=== PATIENT | male | born 1955 | race Caucasian/White ===

== ENCOUNTER 2022-08-27 07:33 | Inpatient (IN) ==
[2022-08-27] MEDS ORDERED: ASPIRIN CHEW 324 MG PO STA (07:48)
--- NOTE | 2022-08-27 07:49 | Emergency Department Note ---
Impression & Plan NSTEMI (non-ST elevated myocardial infarction), Chest pain, Elevated troponin I level ED Provider Note NAME: BLANCA MEJIA AGE: 67 SEX: M : 1955 ARRIVES VIA: Walk-In INFORMANT: Patient, ED PROVIDER(S): Ronny Montenegro DO CHIEF COMPLAINT: Chest pain HPI: The patient is a 67-year-old male who presented to the emergency department for an evaluation of chest pain. The patient describes anterior chest pain that radiates to his neck. He states he has no pain at this time. He is noticed worsening pain with exertion. He notices relief of the pain with rest but he also took an acids thinking this could be upset stomach. The patient denies having any dark or tarry stools. He denies having any nausea or vomiting. He states this morning he had return of the pain without exertion and was associated with diaphoresis. He states he has a history of an IN in the past but he was told it was because of anxiety. He states he is never had a cardiac catheterization but did have a stress test many years ago. He has a history of cholecystectomy as well as high triglycerides. The patient notices no fever or cough. The patient's not been seen by his family doctor for the symptoms. He presented to the emergency department with his significant other. ROS: See above HPI for pertinent positives & negatives. A total of 10 systems reviewed and were otherwise negative. PAST MEDICAL HISTORY: See Below PAST SURGICAL HISTORY: See Below FAMILY HISTORY: See Below SOCIAL HISTORY: See Below HOME MEDICATIONS: See Below ALLERGIES: See Below VITALS: See Below PHYSICAL EXAMINATION: GENERAL: Patient is awake alert in no acute distress patient is resting comfortably and showing no signs of anxiety EYES: The conjunctivae are clear. The pupils are round and reactive. EARS, NOSE, MOUTH AND THROAT: The nose is without any evidence of any deformity. NECK: The neck is nontender and supple. RESPIRATORY: Normal respiratory effort is noted there is no evidence of wheezing rhonchi or rales CARDIOVASCULAR: Regular rate and rhythm noted there no murmurs rubs or gallops normal S1 normal S2. GASTROINTESTINAL: The abdomen is soft. Abdomen is nontender. MUSCULOSKELETAL/EXTREMITIES: There is no evidence of gross deformity full range of motion is noted in the hips and shoulders. SKIN: There is no obvious evidence of any rash. There are no petechiae, pallor or cyanosis noted. NEUROLOGIC: Patient is awake alert and oriented x3 MEDICAL DECISION MAKING: The patient is a 67-year-old male who presented to the emergency department for an evaluation of chest pain. The patient was treated with aspirin initially in the emergency department. The patient's EKG did show biphasic T waves in the anterior leads. Initial troponin was elevated. He was started on heparin. He was reevaluated multiple times. I discussed the patient's laboratory and radiographic studies with him. I also discussed the limitations of the emergency department work-up for chest pain with him. Ultimately he was felt to be a good candidate for intervention after evaluation by cardiology. They did a bedside echo and feel that he does have some hypokinesis which could be consistent with ischemia. I [facility] Triage Nursing notes reviewed. Prior medical records reviewed Vital Signs: reviewed and remarkable for no significant abnormalities Differential diagnosis: Cardiac ischemia, aortic dissection, pulmonary embolism, pneumothorax, pneumonia, pericarditis, myocarditis, esophageal rupture, GERD, cholecystitis, pancreatitis, musculoskeletal, as well as other pathologies. ER treatment provided: See below Diagnostics interpreted by me: ECG: EKG was obtained in the emergency department. My interpretation is normal sinus rhythm at 86 bpm. There is no ectopy. Nonspecific ST segment depressions were noted with biphasic T waves in the anterior leads. No previous tracing was available. Cardiac Monitoring: An order was placed for continuous cardiac monitoring. The monitor shows a rate of 82 bpm with sinus rhythm. Laboratory studies: As stated above and show below. Imaging studies: See below. Radiographic imaging was reviewed by myself Consultation(s): I discussed this case with Dr. Newell who is on-call for the [facility] gas maker helper group. I discussed this case with Aurelia who is on for the [facility] hospitalist bg duncan. ED COURSE: Procedures: none Critical Care: I have personally spent greater than 45 minutes of critical care time in the direct management of this patient. This includes bedside care, interpretation of diagnostic studies, and testing, discussion with consultants, patient, and family members, and other required patient management activities. This 45 minutes is in excess of all separately billable procedures. 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 Hypercholesterolemia Surgical History History of cholecystectomy Family History Father Diabetes Clotting disorder Social History (Updated 08/27/22 @ 10:31 by Aurelia Watts PA-C) Smoking Status: Never smoker Hx Alcohol Use: No Hx Substance Use: Yes Non-Prescribed Medications: Marijuana Preferred Language: Armenian Communication Ability: Effective marital status: Current Living Situation: Spouse current occupational status: retired Feels Safe at Home: Yes Allergies Allergies Allergy/AdvReac Type Severity Reaction Status Date / Time No Known Allergies Allergy Unverified 08/27/22 09:12 Home Meds Home Medications Medication Instructions Recorded Confirmed aspirin 81 mg tablet 81 mg PO DAILY 08/27/22 08/27/22 atorvastatin 20 mg tablet 20 mg PO QAM 08/27/22 08/27/22 Results & Data (ED) Vital Signs Vital Signs - 24 hr 08/27/22 07:34 08/27/22 07:48 08/27/22 10:25 Temperature 36.1 C L Temperature Source Temporal Artery Scan Pulse Rate 85 78 Pulse Rate from SpO2 Sensor Respiratory Rate 20 Respiratory Effort / Characteristics Non-Labored Spontaneous Respiratory Depth Normal Blood Pressure 184/102 H 161/103 H Blood Pressure Mean 129 Pulse Oximetry 95 96 Oxygen Delivery Method Room Air Room Air Sepsis New/Unexplained Change in Mental Status No Sepsis Action Taken by Nursing No Action Required 08/27/22 07:49 08/27/22 07:49 08/27/22 08:00 Temperature Temperature Source Pulse Rate 93 H Pulse Rate from SpO2 Sensor 90 Respiratory Rate 18 Respiratory Effort / Characteristics Respiratory Depth Blood Pressure 160/105 H 138/80 Blood Pressure Mean 123 99 Pulse Oximetry 97 Oxygen Delivery Method Room Air Sepsis New/Unexplained Change in Mental Status Sepsis Action Taken by Nursing 08/27/22 08:00 08/27/22 08:30 08/27/22 08:30 Temperature Temperature Source Pulse Rate 90 90 Pulse Rate from SpO2 Sensor 79 76 Respiratory Rate 18 20 Respiratory Effort / Characteristics Respiratory Depth Blood Pressure 156/97 H Blood Pressure Mean 116 Pulse Oximetry 95 98 Oxygen Delivery Method Room Air Room Air Sepsis New/Unexplained Change in Mental Status Sepsis Action Taken by Nursing 08/27/22 09:00 08/27/22 09:00 08/27/22 09:30 Temperature Temperature Source Pulse Rate 85 85 Pulse Rate from SpO2 Sensor 65 69 Respiratory Rate 12 18 Respiratory Effort / Characteristics Respiratory Depth Blood Pressure 152/74 H Blood Pressure Mean 100 Pulse Oximetry 97 97 Oxygen Delivery Method Room Air Room Air Sepsis New/Unexplained Change in Mental Status Sepsis Action Taken by Nursing 08/27/22 09:31 08/27/22 09:31 08/27/22 10:00 Temperature Temperature Source Pulse Rate 91 H Pulse Rate from SpO2 Sensor 73 Respiratory Rate 24 Respiratory Effort / Characteristics Respiratory Depth Blood Pressure 153/77 H 175/103 H Blood Pressure Mean 102 127 Pulse Oximetry 96 Oxygen Delivery Method Room Air Sepsis New/Unexplained Change in Mental Status Sepsis Action Taken by Nursing 08/27/22 10:00 08/27/22 10:11 08/27/22 10:11 Temperature Temperature Source Pulse Rate 89 87 Pulse Rate from SpO2 Sensor 88 83 Respiratory Rate 19 20 Respiratory Effort / Characteristics Respiratory Depth Blood Pressure 161/103 H Blood Pressure Mean 122 Pulse Oximetry 97 97 Oxygen Delivery Method Room Air Room Air Sepsis New/Unexplained Change in Mental Status Sepsis Action Taken by Nursing 08/27/22 10:15 08/27/22 10:30 08/27/22 10:30 Temperature Temperature Source Pulse Rate 87 81 Pulse Rate from SpO2 Sensor 78 70 Respiratory Rate 17 19 Respiratory Effort / Characteristics Respiratory Depth Blood Pressure 162/93 H Blood Pressure Mean 116 Pulse Oximetry 97 97 Oxygen Delivery Method Room Air Room Air Sepsis New/Unexplained Change in Mental Status Sepsis Action Taken by Nursing 08/27/22 10:45 08/27/22 10:45 Temperature Temperature Source Pulse Rate 82 Pulse Rate from SpO2 Sensor 79 Respiratory Rate 17 Respiratory Effort / Characteristics Respiratory Depth Blood Pressure 137/80 Blood Pressure Mean 99 Pulse Oximetry 96 Oxygen Delivery Method Room Air Sepsis New/Unexplained Change in Mental Status Sepsis Action Taken by [facility] Medications Current Medication List: was personally reviewed by me Laboratory Data Attestation: I reviewed the patient's lab results. 08/27/22 07:48 08/27/22 07:48 Lab Results 08/27/22 08/27/22 08/27/22 Range/Units 07:48 07:48 07:48 WBC 11.70 H (4.8-10.8) K/ul RBC 5.45 (4.70-6.10) M/uL Hgb 16.5 (14.0-18.0) g/dl Hct 47.8 (42.0-52.0) % MCV 87.7 (80.0-100.0) fL MCH 30.3 (25.0-34.0) pg MCHC 34.5 (32.0-36.0) g/dL RDW Std Deviation 43.5 (36.4-46.3) fL RDW Coeff of Zachery 13.5 (11.5-14.5) % Plt Count 211 (130-400) K/uL MPV 9.6 (9.4-12.4) fL Immature Gran % (Auto) 0.3 % Neut % (Auto) 65.8 % Lymph % (Auto) 20.9 % [place] % (Auto) 7.9 % Eos % (Auto) 3.9 % Baso % (Auto) 1.2 % Neut # (Auto) 7.69 H (1.40-6.50) K/uL Lymph # (Auto) 2.44 (1.2-3.4) K/uL [place] # (Auto) 0.93 H (0.11-0.59) K/uL Eos # (Auto) 0.46 (0-0.50) K/uL Baso # (Auto) 0.14 (0-0.2) K/uL Immature Gran # (Auto) 0.04 (0.01-0.20) K/uL PT 10.7 (9.0-12.0) Seconds INR 1.0 (0.9-1.1) APTT 25.9 (21.0-31.0) Seconds PTT Ratio 0.9 Sodium 138 (136-145) mmol/L Potassium 3.9 (3.5-5.1) mmol/L Chloride 105 (98-107) mmol/L Carbon Dioxide 27 (21-32) mmol/L Anion Gap 6 (3-11) BUN 19 (6-23) mg/dl Creatinine 1.05 (0.6-1.4) mg/dl Est Cr Clr Drug Dosing 72.9 ml/min Est GFR ( Amer) 83.5 ml/min Est GFR (Non-Af Amer) 72.1 ml/min BUN/Creatinine Ratio 18.1 (10-20) Glucose 157 H (70-99(Fasting)) mg/dl Calcium 10.5 H (8.6-10.3) mg/dl Total Bilirubin 1.1 H (0.2-1.0) mg/dl AST 35 (13-39) U/L ALT 35 (7-52) U/L Alkaline Phosphatase 80 (34-104) U/L Troponin I High Sens 193.5 H* (0-20) pg/ml Total Protein 7.5 (6.0-8.3) gm/dl Albumin 4.5 (3.4-5.0) gm/dl Globulin 3.0 (2.5-4.0) gm/dl Albumin/Globulin Ratio 1.5 (0.9-2) Lipase 34 (11-82) U/L SARS-CoV-2, RNA, NAAT (NEGATIVE) 08/27/22 Range/Units 08:30 WBC (4.8-10.8) K/ul RBC (4.70-6.10) M/uL Hgb (14.0-18.0) g/dl Hct (42.0-52.0) % MCV (80.0-100.0) fL MCH (25.0-34.0) pg MCHC (32.0-36.0) g/dL RDW Std Deviation (36.4-46.3) fL RDW Coeff of Zachery (11.5-14.5) % Plt Count (130-400) K/uL MPV (9.4-12.4) fL Immature Gran % (Auto) % Neut % (Auto) % Lymph % (Auto) % [place] % (Auto) % Eos % (Auto) % Baso % (Auto) % Neut # (Auto) (1.40-6.50) K/uL Lymph # (Auto) (1.2-3.4) K/uL [place] # (Auto) (0.11-0.59) K/uL Eos # (Auto) (0-0.50) K/uL Baso # (Auto) (0-0.2) K/uL Immature Gran # (Auto) (0.01-0.20) K/uL PT (9.0-12.0) Seconds INR (0.9-1.1) APTT (21.0-31.0) Seconds PTT Ratio Sodium (136-145) mmol/L Potassium (3.5-5.1) mmol/L Chloride (98-107) mmol/L Carbon Dioxide (21-32) mmol/L Anion Gap (3-11) BUN (6-23) mg/dl Creatinine (0.6-1.4) mg/dl Est Cr Clr Drug Dosing ml/min Est GFR ( Amer) ml/min Est GFR (Non-Af Amer) ml/min BUN/Creatinine Ratio (10-20) Glucose (70-99(Fasting)) mg/dl Calcium (8.6-10.3) mg/dl Total Bilirubin (0.2-1.0) mg/dl AST (13-39) U/L ALT (7-52) U/L Alkaline Phosphatase (34-104) U/L Troponin I High Sens (0-20) pg/ml Total Protein (6.0-8.3) gm/dl Albumin (3.4-5.0) gm/dl Globulin (2.5-4.0) gm/dl Albumin/Globulin Ratio (0.9-2) Lipase (11-82) U/L SARS-CoV-2, RNA, NAAT NEGATIVE (NEGATIVE) Administered Medications Heparin Sodium/Dextrose (Heparin Sodium/Dextrose) 25,000 units in 500 mls @ 28 mls/hr IV .[id number] [facility]; Protocol Stop: 09/26/22 09:14 Last Admin: 08/27/22 09:16 Dose: 1,400 units/hr, 28 mls/hr Documented By: GEREMIAS Co-signed By: KV Discontinued Medications Aspirin (Aspirin Chew 324 Mg) 324 mg PO NOW STA Stop: 08/27/22 07:49 Last Admin: 08/27/22 07:51 Dose: 324 mg Documented By: GEREMIAS Heparin Sodium/Dextrose (Heparin Iv Adult Wt-Based Standard *No* Bolus Protocol) 1 each IV ONE ONE; Protocol Stop: 08/27/22 08:49 Last Admin: 08/27/22 09:27 Dose: Not Given Documented By: GEREMIAS Metoprolol Tartrate (Metoprolol Tartrate 1 Mg/Ml Vial) 5 mg IV NOW STA Stop: 08/27/22 10:12 Last Admin: 05/22/23 10:25 Dose: 5 mg Documented By: GEREMIAS Metoprolol Tartrate (Metoprolol Tartrate 1 Mg/Ml Vial) Confirm Administered Dose 5 mg IV .STK-MED ONE Stop: 08/27/22 10:23 Last Admin: 08/27/22 10:23 Dose: Not Given Documented By: GEREMIAS Imaging Data Attestation: I personally reviewed and interpreted this imaging study as follows: My Impression: 1 view chest x-ray was obtained in the emergency department. My interpretation is no free air, no definite infiltrate, final report below Radiologist's Impression: Chest X-Ray 08/27/22 07:48 XR chest 1V portable CLINICAL HISTORY: Chest pain, nonspecific TECHNIQUE: Single frontal radiograph of the chest was obtained. Comparison: None available at the time of this dictation. FINDINGS: No lines and tubes are seen. The cardiomediastinal silhouette is normal. The lungs are clear. No evidence of pleural effusion or pneumothorax. IMPRESSION: No acute chest disease. ACT 112: Negative or not required by law. Electronically signed by: Sha Orantes M.D. 08/27/2022 8:09 AM Discharge Plan Visit Data Chief Complaint: Chest Pain Stated Complaint: CHEST PAIN ED Provider: Ronny Montenegro Discharge Problem: NSTEMI (non-ST elevated myocardial infarction), Chest pain, Elevated troponin I level Patient Disposition: Being Evaluated by Hospitalist Discharge Instructions Interventions: ED Discharge Assessment Last Done: 08/27/22 11:07 Forms Stand Alone Forms: My [facility] [employer] Prescriptions Prescriptions: No Action atorvastatin 20 mg tablet 20 mg PO QAM aspirin 81 mg Tablet 81 mg PO DAILY Referrals Referrals: Sid Lau [Non-Staff] -
--- NOTE | 2022-08-27 08:10 | XRay Report ---
XR chest 1V portable CLINICAL HISTORY: Chest pain, nonspecific TECHNIQUE: Single frontal radiograph of the chest was obtained. Comparison: None available at the time of this dictation. FINDINGS: No lines and tubes are seen. The cardiomediastinal silhouette is normal. The lungs are clear. No evid ence of pleural effusion or pneumothorax. IMPRESSION: No acute chest disease. ACT 112: Negative or not required by law. Electronically signed by: Sha Orantes M.D. 08/27/2022 8:09 AM
[2022-08-27 08:11] LABS: Basophils # (auto) 0.14 K/uL (0-0.2); Basophils % (auto) 1.2 %; Eosinophils # (auto) 0.46 K/uL (0-0.50); Eosinophils % (auto) 3.9 %; Hematocrit (blood only) 47.8 % (42.0-52.0); Hemoglobin 16.5 g/dl (14.0-18.0); Immature Granulocytes # (auto) 0.04 K/uL (0.01-0.20); Immature Granulocytes % (auto) 0.3 %; Lymphocytes # (auto) 2.44 K/uL (1.2-3.4); Lymphocytes % (auto) 20.9 %; Mean Corpuscular Hemoglobin 30.3 pg (25.0-34.0); Mean Corpuscular Hgb Conc 34.5 g/dL (32.0-36.0); Mean Corpuscular Volume 87.7 fL (80.0-100.0); Mean Platelet Volume 9.6 fL (9.4-12.4); Monocytes # (auto) 0.93 K/uL (0.11-0.59); Monocytes % (auto) 7.9 %; Neutrophils # (auto) 7.69 K/uL (1.40-6.50); Neutrophils % (auto) 65.8 %; Platelet Count 211 K/uL (130-400); RDW Coefficient of Variation 13.5 % (11.5-14.5); RDW Standard Deviation 43.5 fL (36.4-46.3); Red Blood Count 5.45 M/uL (4.70-6.10)
[2022-08-27 08:22] LABS: Partial Thromboplastin Ratio 0.9; Partial Thromboplastin Time 25.9 Seconds (21.0-31.0); Prothrombin Time 10.7 Seconds (9.0-12.0)
[2022-08-27 08:37] LABS: Albumin Globulin Ratio 1.5 (0.9-2); Albumin Level 4.5 gm/dl (3.4-5.0); BUN Creatinine Ratio 18.1 (10-20); Bilirubin,Total 1.1 mg/dl (0.2-1.0); Calcium 10.5 mg/dl (8.6-10.3); Creatinine Clr Calc Pharmacy 72.9 ml/min; Est GFR (African American) 83.5 ml/min; Est GFR (Non-African American) 72.1 ml/min; Potassium 3.9 mmol/L (3.5-5.1); Total Protein 7.5 gm/dl (6.0-8.3)
[2022-08-27] MEDS ORDERED: Heparin IV Adult Wt-Based Standard *NO* Bolus Protocol IV ONE (08:48)
[2022-08-27 08:55] LABS: Troponin I High Sensitivity 193.5 pg/ml (0-20)
[2022-08-27] MEDS ORDERED: HEPARIN SODIUM/DEXTROSE 25,000 UNITS/500 ML BAG IV SCH (09:15)
[2022-08-27] MEDS ORDERED: METOPROLOL TARTRATE 1 MG/ML VIAL IV STA (10:11)
[2022-08-27] MEDS ORDERED: METOPROLOL TARTRATE 1 MG/ML VIAL IV ONE (10:22)
--- NOTE | 2022-08-27 10:31 | History & Physical Report ---
Date of Service August 27, 2022 Assessment & Plan (1) NSTEMI (non-ST elevated myocardial infarction): (2) Hypercholesterolemia: Plan This is a 67-year-old male who has significant past medical history of hyperlipidemia, history of necrotizing pancreatitis 7 years ago and marijuana u se who presents to ED secondary to chest pain x2 to 3 days. Discussed with cardiology, Dr. Ramirez, at bedside. Pt with previous chest pain in setting of elevated trop and concern for LAD territorial infarct on initial echo reading. Plan to go for cardiac cath today, timing TBD. NSTEMI HLD admit to PCU keep NPO plan for cardiac cath pt received 324mg of ASA in ED Heparin initiated will continue home dose asa and atorvastatin, may need to increase atorvastatin based on lipid panel in a.m. lipid panel, a1c in a.m. start metoprolol tartrate 25mg bid cardiology on board formal echo report pending will await further recs pending cath PCP: Franchesca FULL CODE Dispo: PCU Pt was seen and examined in collaboration with Dr. Hall, please see addendum History of Present Illness Chief Complaint: Chest pain x2 to 3 days. Primary Care Provider: Cassandra Sorensen, This is a 67-year-old male who has significant past medical history of hyperlipidemia, history of necrotizing pancreatitis 7 years ago and marijuana use who presents to ED secondary to chest pain x2 to 3 days. Patient's is at bedside. Patient notes substernal nonradiating chest pain that occurred while at rest over the last 2 to 3 days. When it came on he will try to, "walk it off," and symptoms will get worse. This morning he woke up and shortly after arising the chest pain started again and therefore presented to ED. He described the pain as a pressure. He has never experienced this pain before. He has been trying Tums over the weekend without significant relief. He denies any significant family history of cardiac disease. He denies any recent illness, fever, chills, sweats, lightheadedness, dizziness, diaphoresis, shortness of breath, EDGAR, orthopnea, nausea, vomiting, abdominal pain or change in bowel or urinary habits. He does not smoke or use any alcohol. He does smoke marijuana at bedtime to help him sleep. 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 Hypercholesterolemia Surgical History History of cholecystectomy Family History Father Diabetes Clotting disorder Social History (Updated 08/27/22 @ 10:31 by Aurelia Watts PA-C) Smoking Status: Former smoker Hx Alcohol Use: No Hx Substance Use: Yes Non-Prescribed Medications: Marijuana Last Used Substance Other:: uses at for sleep Preferred Language: Citizen Of [place] Communication Ability: Effective Ear Muff Assembler Required: No Beliefs That Will Affect Care: None marital status: Current Living Situation: Spouse current occupational status: retired Other Information That Helps Us Care for You: No Feels Safe at Home: Yes Assistive Devices: Glasses Review of Systems Review of Systems: All systems reviewed & are unremarkable except as noted in HPI & below Physical Exam Physical Exam: Constitutional: WD/WN, vitals as above, NAD, sitting up in bed, pleasant, conversing easily Head: Normocephalic, Atraumatic Eyes: PERRL, conjunctivae normal, anicteric sclerae ENMT: external ear and nose normal, oropharynx normal Neck: trachea midline, no thyromegaly normal visual inspection Respiratory: normal respiratory effort, lungs clear to auscultation, no wheeze, rales, rhonchi. Normal insp/exp effort, no accessory muscle use Cardiovascular: RRR, no murmur, no edema Vessels: no JVD or carotid bruit Chest: normal inspection of chest Abdomen: normal bowel sounds, soft, nontender, no hepatosplenomegaly Musculoskeletal: no cyanosis or clubbing, extremities motor strength 5/5 Skin: no rashes, warm and dry normal turgor Neurologic: PERRL, EOMI, accommodation nl, no face palsy, no dysarthria CN's II-XI intact bilaterally and moves all extremities Psychiatric: A+Ox3, euthymic affect Lymphatic: no cervical or axillary lymphadenopathy : deferred Results & Data Results & Data Vital Signs (Past 12 Hours) Vital Signs Temp Pulse Resp BP Pulse Ox O2 Del Method 08/27/22 10:11 87 20 97 Room Air 08/27/22 10:11 161/103 H 08/27/22 10:00 89 19 97 Room Air 08/27/22 10:00 175/103 H 08/27/22 09:31 91 H 24 96 Room Air 08/27/22 09:31 153/77 H 08/27/22 09:30 85 18 97 Room Air 08/27/22 09:00 85 12 97 Room Air 08/27/22 09:00 152/74 H 08/27/22 08:30 90 20 98 Room Air 08/27/22 08:30 156/97 H 08/27/22 08:00 90 18 95 Room Air 08/27/22 08:00 138/80 08/27/22 07:49 93 H 18 97 Room Air 08/27/22 07:49 160/105 H 08/27/22 10:25 78 161/103 H 08/27/22 07:48 96 Room Air 08/27/22 07:34 36.1 C L 85 20 184/102 H 95 Room Air Diagnostic Findings Chest X-Ray 08/27/22 07:48 XR chest 1V portable CLINICAL HISTORY: Chest pain, nonspecific TECHNIQUE: Single frontal radiograph of the chest was obtained. Comparison: None available at the time of this dictation. FINDINGS: No lines and tubes are seen. The cardiomediastinal silhouette is normal. The lungs are clear. No evidence of pleural effusion or pneumothorax. IMPRESSION: No acute chest disease. ACT 112: Negative or not required by law. Electronically signed by: Sha Orantes M.D. 08/27/2022 8:09 AM Medications Administered Medication List Heparin Sodium/Dextrose (Heparin Sodium/Dextrose) 25,000 units in 500 mls @ 28 mls/hr IV .[id number] [facility]; Protocol Stop: 09/26/22 09:14 Last Admin: 08/27/22 09:16 Dose: 1,400 units/hr, 28 mls/hr Documented By: GEREMIAS Co-signed By: KV Discontinued Medications Aspirin (Aspirin Chew 324 Mg) 324 mg PO NOW STA Stop: 08/27/22 07:49 Last Admin: 08/27/22 07:51 Dose: 324 mg Documented By: GEREMIAS Heparin Sodium/Dextrose (Heparin Iv Adult Wt-Based Standard *No* Bolus Protocol) 1 each IV ONE ONE; Protocol Stop: 08/27/22 08:49 Last Admin: 08/27/22 09:27 Dose: Not Given Documented By: GEREMIAS Metoprolol Tartrate (Metoprolol Tartrate 1 Mg/Ml Vial) 5 mg IV NOW STA Stop: 08/27/22 10:12 Last Admin: 08/27/22 10:25 Dose: 5 mg Documented By: GEREMIAS Metoprolol Tartrate (Metoprolol Tartrate 1 Mg/Ml Vial) Confirm Administered Dose 5 mg IV .STK-MED ONE Stop: 08/27/22 10:23 Last Admin: 08/27/22 10:23 Dose: Not Given Documented By: GEREMIAS ECG Rate (beats per minute): 82 Rhythm: normal sinus Findings: + PVC COVID-19 Results Results COVID-19 Adm Lab Results: RBC 5.45 M/uL (4.70-6.10) 08/27/22 WBC 11.70 K/ul (4.8-10.8) H 08/27/22 Hgb 16.5 g/dl (14.0-18.0) 08/27/22 Hct 47.8 % (42.0-52.0) 08/27/22 Plt Count 211 K/uL (130-400) 08/27/22 Neutrophils (%) (Auto) 65.8 % 08/27/22 Lymphocytes (%) (Auto) 20.9 % 08/27/22 Monocytes # (Auto) 0.93 K/uL (0.11-0.59) H 08/27/22 Eosinophils # (Auto) 0.46 K/uL (0-0.50) 08/27/22 Immature Granulocyte % (Auto) 0.3 % 08/27/22 Neutrophils # (Auto) 7.69 K/uL (1.40-6.50) H 08/27/22 Lymphocytes # (Auto) 2.44 K/uL (1.2-3.4) 08/27/22 Monocytes # (Auto) 0.93 K/uL (0.11-0.59) H 08/27/22 Eosinophils # (Auto) 0.46 K/uL (0-0.50) 08/27/22 Basophils # (Auto) 0.14 K/uL (0-0.2) 08/27/22 Immature Granulocyte # (Auto) 0.04 K/uL (0.01-0.20) 3 Na 138 mmol/L (136-145) 08/27/22 K 3.9 mmol/L (3.5-5.1) 08/27/22 Cl 105 mmol/L (98-107) 08/27/22 CO2 27 mmol/L (21-32) 08/27/22 Anion Gap 6 (3-11) 08/27/22 BUN 19 mg/dl (6-23) 08/27/22 Creatinine 1.05 mg/dl (0.6-1.4) 08/27/22 BUN/Creatinine Ratio 18.1 (10-20) 08/27/22 Glucose Level 157 mg/dl (70-99(Fasting)) H 08/27/22 Ca 10.5 mg/dl (8.6-10.3) H 08/27/22 Total Bilirubin 1.1 mg/dl (0.2-1.0) H 08/27/22 AST/SGOT 35 U/L (13-39) 08/27/22 ALT/SGPT 35 U/L (7-52) 08/27/22 Alkaline Phosphatase 80 U/L (34-104) 08/27/22 Total Protein 7.5 gm/dl (6.0-8.3) 08/27/22 Albumin 4.5 gm/dl (3.4-5.0) 08/27/22 Globulin 3.0 gm/dl (2.5-4.0) 08/27/22 Albumin/Globulin Ratio 1.5 (0.9-2) 08/27/22 PTT 36.3 Seconds (21.0-31.0) H 08/27/22 INR 1.0 (0.9-1.1) 08/27/22 SARS-CoV-2, RNA, NAAT NEGATIVE (NEGATIVE) 08/27/22 Chest X-Ray 08/27/22 Code Status & VTE Plan Code Status full code VTE Prophylaxis Plan VTE Prophylaxis will be ordered: No Reason for no VTE drug order: Treatment not indicated Supervising Physician Co-Signing Physician Notes Patient was seen and examined independently. Chart reviewed. Case discussed wi th MICHELLE. Here with unstable angina, started on heparin drip and plan for cardiac cath.
--- NOTE | 2022-08-27 10:33 | Cardiology Consultation ---
Date of Consultation August 27, 2022 Assessment & Plan (1) NSTEMI (non-ST elevated myocardial infarction): Plan 67-year-old male presents with 4 days of waxing and waning chest discomfort, elevation in high-sensitivity troponin of 193.5, subtle anteroseptal, anterior wall motion abnormality noted on bedside echocardiogram, without significant repolarization changes noted on EKG x2. Chest discomfort resolved at present at the time my assessment. Medication therapy: Patient has received aspirin 324 mg daily and aspirin 81 mg daily will be continued. Patient remains a little bit hypertensive at the time my assessment with heart rate in the 70s, and systolic blood pressure in the 160s. We will therefore proceed with a dose of metoprolol tartrate 5 mg IV x1. Continue prior to hospital treatment with atorvastatin, increased dose to 40 mg pending results of lipid panel. Start metoprolol tartrate 25 mg twice daily. Patient be kept n.p.o. except medications. Will discuss case with interventional cardiology with anticipated cardiac catheterization today. Patient agreeable to plan. Case discussed with Dr Montenegro of emergency medicine and Aurelia Watts PA-C for the purpose of coordination of care. History of Present Illness History of Present Illness Silvio Arango is a 67-year-old male seen in cardiology consultation per the request of Dr. Montenegro for the evaluation of a non-ST segment elevation acute coronary syndrome. Patient seen and examined in room B3 of the emergency department. He is accompanied by his spouse, Grace who is at the bedside at the time of my assessment. Patient states that 3 days ago on 08/24/2022 he had experienced a chest pressure sensation at rest. This went away on its own however he went for a short walk and he noted that the symptoms returned. The symptoms waxed and waned over the weekend on Saturday and Saturday and this morning shortly after waking up he noted severe midline chest pressure. He presented to the emergency department by private automobile. Initial EKG performed this morning 7:44 AM revealed sinus rhythm at 86 bpm with incomplete right bundle branch block and no significant repolarization changes. His initial high-sensitivity troponin I was elevated at 193.5 PG per mL. Patient states that his discomfort resolved in the emergency room shortly after receiving four 81 mg aspirin tablets and initiation of unfractioned heparin. Repeat EKG performed at the time of my assessment at the bedside at 10:02 AM reveals ongoing sinus rhythm at 82 bpm with occasional PVCs and nonspecific ST-T wave abnormality without significant ST elevation or depression. A bedside echocardiogram has been performed revealing a subtle anteroseptal and anterior wall motion abnormality with normal LVEF in the range of 55 to 60% and without significant valvular heart disease. The patient does not have a past cardiac history. History only notable for past cholecystectomy. Outpatient medications include aspirin 81 mg daily and atorvas tatin 20 mg daily. 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 Family History: Denies family history of coronary heart disease Allergies: No known drug allergies Last Meal: Evening of 08/26/2022 Allergies Allergy/AdvReac Type Severity Reaction Status Date / Time No Known Allergies Allergy Unverified 08/27/22 11:18 Home Medications Medication Instructions Recorded Confirmed Type aspirin 81 mg tablet 81 mg PO DAILY 08/27/22 08/27/22 History atorvastatin 20 mg tablet 20 mg PO QAM 08/27/22 08/27/22 History Patient History Medical History (Updated 08/27/22 @ 10:37 by Aurelia Watts PA-C) Hx of pancreatitis 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 Hypercholesterolemia Surgical History History of cholecystectomy Family History Father Diabetes Clotting disorder Social History (Updated 08/27/22 @ 10:31 by Aurelia Watts PA-C) Smoking Status: Former smoker Hx Alcohol Use: No Hx Substance Use: Yes Non-Prescribed Medications: Marijuana Last Used Substance Other:: uses at Hs for sleep Preferred Language: Peruvian Communication Ability: Effective Fitter Mechanic Required: No Beliefs That Will Affect Care: None marital status: Current Living Situation: Spouse current occupational status: retired Other Information That Helps Us Care for You: No Feels Safe at Home: Yes Assistive Devices: Glasses Review of Systems Review of Systems: All systems reviewed & are unremarkable except as noted in HPI & below Physical Exam Physical Exam: Temp Pulse Resp BP Pulse Ox O2 Del Method 36.1 C L 78 20 161/103 H 97 Room Air 08/27/22 07:34 08/27/22 10:25 08/27/22 10:11 08/27/22 10:25 08/27/22 10:11 08/27/22 10:11 Constitutional: WD/WN, vitals as above Eyes: PERRL, conjunctivae normal, anicteric sclerae Respiratory: normal respiratory effort, lungs clear to auscultation Cardiovascular: RRR, no murmur, no edema Gastrointestinal (Abdomen): normal bowel sounds, soft, nontender, no hepatosplenomegaly Neurologic: PERRL, EOMI, accommodation nl, no face palsy, no dysarthria Psychiatric: A+Ox3, euthymic affect Results & Data Vital Signs (Past 12 Hours) Vital Signs Temp Pulse Resp BP Pulse Ox O2 Del Method 08/27/22 09:31 91 H 24 96 Room Air 08/27/22 09:31 153/77 H 08/27/22 09:30 85 18 97 Room Air 08/27/22 09:00 85 12 97 Room Air 08/27/22 09:00 152/74 H 08/27/22 08:30 90 20 98 Room Air 08/27/22 08:30 156/97 H 08/27/22 08:00 90 18 95 Room Air 08/27/22 08:00 138/80 08/27/22 07:49 93 H 18 97 Room Air 08/27/22 07:49 160/105 H 08/27/22 07:48 96 Room Air 08/27/22 07:34 36.1 C L 85 20 184/102 H 95 Room Air Laboratory Results Cardiac Enzymes 08/27/22 Range/Units 07:48 AST 35 (13-39) U/L Troponin I High Sens 193.5 H* (0-20) pg/ml Coagulation 08/27/22 Range/Units 07:48 PT 10.7 (9.0-12.0) Seconds APTT 25.9 (21.0-31.0) Seconds CBC 08/27/22 Range/Units 07:48 WBC 11.70 H (4.8-10.8) K/ul RBC 5.45 (4.70-6.10) M/uL Hgb 16.5 (14.0-18.0) g/dl Hct 47.8 (42.0-52.0) % Plt Count 211 (130-400) K/uL Neut # (Auto) 7.69 H (1.40-6.50) K/uL Lymph # (Auto) 2.44 (1.2-3.4) K/uL [place] # (Auto) 0.93 H (0.11-0.59) K/uL Eos # (Auto) 0.46 (0-0.50) K/uL Baso # (Auto) 0.14 (0-0.2) K/uL Comprehensive Metabolic Panel 08/27/22 Range/Units 07:48 Sodium 138 (136-145) mmol/L Potassium 3.9 (3.5-5.1) mmol/L Chloride 105 (98-107) mmol/L Carbon Dioxide 27 (21-32) mmol/L BUN 19 (6-23) mg/dl Creatinine 1.05 (0.6-1.4) mg/dl Glucose 157 H (70-99(Fasting)) mg/dl Calcium 10.5 H (8.6-10.3) mg/dl AST 35 (13-39) U/L ALT 35 (7-52) U/L Alkaline Phosphatase 80 (34-104) U/L Total Protein 7.5 (6.0-8.3) gm/dl Albumin 4.5 (3.4-5.0) gm/dl Intake and Output 08/26/22 08/27/22 08/27/22 22:59 06:59 14:59 Other: Weight 88 kg Weight Measurement Method Chair Scale Patient Weight 08/28/22 06:59 Weight 88 kg Diagnostic Findings EKG findings as noted above. Echo findings as noted.
--- NOTE | 2022-08-27 11:29 | Pre Anesthesia Assessment ---
Date of Service August 27, 2022 Pre Sedation Assessment Vital Signs Temp Pulse Pulse Resp BP BP Pulse Ox 08/27/22 11:10 83 18 162/109 H 98 08/27/22 10:45 82 17 96 08/27/22 10:45 137/80 08/27/22 10:30 81 19 97 08/27/22 10:30 162/93 H 08/27/22 10:15 87 17 97 08/27/22 10:11 87 20 97 08/27/22 10:11 161/103 H 08/27/22 10:00 89 19 97 08/27/22 10:00 175/103 H 08/27/22 09:31 91 H 24 96 08/27/22 09:31 153/77 H 08/27/22 09:30 85 18 97 08/27/22 09:00 85 12 97 08/27/22 09:00 152/74 H 08/27/22 08:30 90 20 98 08/27/22 08:30 156/97 H 08/27/22 08:00 90 18 95 08/27/22 08:00 138/80 08/27/22 07:49 93 H 18 97 08/27/22 07:49 160/105 H 08/27/22 10:25 78 161/103 H 08/27/22 07:48 96 08/27/22 07:34 97.0 F L 85 20 184/102 H 95 O2 Del Method 08/27/22 11:10 Room Air 08/27/22 10:45 Room Air 08/27/22 10:45 08/27/22 10:30 Room Air 08/27/22 10:30 08/27/22 10:15 Room Air 08/27/22 10:11 Room Air 08/27/22 10:11 08/27/22 10:00 Room Air 08/27/22 10:00 08/27/22 09:31 Room Air 08/27/22 09:31 08/27/22 09:30 Room Air 08/27/22 09:00 Room Air 08/27/22 09:00 08/27/22 08:30 Room Air 08/27/22 08:30 08/27/22 08:00 Room Air 08/27/22 08:00 08/27/22 07:49 Room Air 08/27/22 07:49 08/27/22 10:25 08/27/22 07:48 Room Air 08/27/22 07:34 Room Air Cardiovascular RRR, no murmur, no edema Respiratory normal respiratory effort, lungs clear to auscultation Pre-Sedation Airway Assessment Smoking Status: Never smoker Hx Sleep Apnea: No Hx Difficult Intubation: No Short, Thick Neck: No Thyromental Distance: > or= 3.5 Finger Breadths Oral Cavity: + WNL Mallampati Class: II ASA: ASA3 NPO Status Date of Last Intake of Fluids: 08/26/22 Time of Last Intake of Fluids: 23:00 Date of Last Intake of Solid Food: 08/26/22 Time of Last Intake of Solid Foods: 23:00 Procedure Planning Contraindications for Sedation: none Current Medications Reviewed: Yes Notes The planned sedation has been discussed with the patient. Informed Consent was obtained. I have identified the patient, determined the appropriateness of sedation and have assessed the patient immediately prior to the procedure. All medicine(s) and interventions are by my order.
[2022-08-27] MEDS ORDERED: MIDAZOLAM HCL 1 MG/ML 2ML VIAL ONE ×2 (11:58→12:55)
--- NOTE | 2022-08-27 12:03 | Electrocardiogram Report ---
Test Reason : Blood Pressure : / mmHG Vent. Rate : 086 BPM Atrial Rate : 086 BPM P-R Int : 168 ms QRS Dur : 092 ms QT Int : 354 ms P-R-T Axes : 022 -34 080 degrees QTc Int : 423 ms Normal sinus rhythm Left axis deviation Nonspecific T wave abnormality Abnormal ECG No previous ECGs available Confirmed by Ronny Flanagan ([id number]) on 08/27/2022 12:03:36 PM Referred By: REFERRED SELF Confirmed By:Ronny Flanagan
--- NOTE | 2022-08-27 12:06 | Electrocardiogram Report ---
Test Reason : Blood Pressure : / mmHG Vent. Rate : 082 BPM Atrial Rate : 082 BPM P-R Int : 164 ms QRS Dur : 092 ms QT Int : 356 ms P-R-T Axes : 000 -28 100 degrees QTc Int : 415 ms Sinus rhythm with occasional Premature ventricular complexes RSR' or QR pattern in V1 suggests right ventricular conduction delay Nonspecific ST and T wave abnormality Abnormal ECG When compared with ECG of 27-AUG-2022 07:44, (unconfirmed) Premature ventricular complexes are now Present Nonspecific T wave abnormality no longer evident in Anterior leads Confirmed by Ronny Flanagan ([id number]) on 08/27/2022 12:05:41 PM Referred By: REFERRED SELF Confirmed By:Ronny Flanagan
[2022-08-27] MEDS ORDERED: fentaNYL citrate PF 100 MCG/2 ML VIAL ONE ×2 (12:51→12:55)
[2022-08-27] MEDS ORDERED: TICAGRELOR 90 MG TAB ONE (12:52)
[2022-08-27] MEDS ORDERED: niCARdipine HCL INJ 2.5 MG/ML 10 ML AMP ONE (12:55)
[2022-08-27] MEDS ORDERED: NITROGLYCERIN/D5W 100MCG/ML 20ML SYR ONE (12:55)
[2022-08-27] MEDS: HEPARIN (PORCINE) 1000 UNIT/ML 10 ML (CATH LAB USE ONLY) ONE ×2 (12:56→13:55)
[2022-08-27] MEDS ORDERED: NITROGLYCERIN SL 0.4 MG/TAB TAB SL PRN (13:16)
--- NOTE | 2022-08-27 13:16 | Post Anesthesia Assessment ---
Date of Service August 27, 2022 Post Sedation Assessment Vital Signs Temp Pulse Pulse Resp BP BP BP 08/27/22 13:00 75 16 123/79 08/27/22 11:10 83 18 162/109 H 08/27/22 10:45 82 17 08/27/22 10:45 137/80 08/27/22 10:30 81 19 08/27/22 10:30 162/93 H 08/27/22 10:15 87 17 08/27/22 10:11 87 20 08/27/22 10:11 161/103 H 08/27/22 10:00 89 19 08/27/22 10:00 175/103 H 08/27/22 09:31 91 H 24 08/27/22 09:31 153/77 H 08/27/22 09:30 85 18 08/27/22 09:00 85 12 08/27/22 09:00 152/74 H 08/27/22 08:30 90 20 08/27/22 08:30 156/97 H 08/27/22 08:00 90 18 08/27/22 08:00 138/80 08/27/22 07:49 93 H 18 08/27/22 07:49 160/105 H 08/27/22 10:25 78 161/103 H 08/27/22 07:48 08/27/22 07:34 97.0 F L 85 20 184/102 H Pulse Ox O2 Del Method 08/27/22 13:00 93 Room Air 08/27/22 11:10 98 Room Air 08/27/22 10:45 96 Room Air 08/27/22 10:45 08/27/22 10:30 97 Room Air 08/27/22 10:30 08/27/22 10:15 97 Room Air 08/27/22 10:11 97 Room Air 08/27/22 10:11 08/27/22 10:00 97 Room Air 08/27/22 10:00 08/27/22 09:31 96 Room Air 08/27/22 09:31 08/27/22 09:30 97 Room Air 08/27/22 09:00 97 Room Air 08/27/22 09:00 08/27/22 08:30 98 Room Air 08/27/22 08:30 08/27/22 08:00 95 Room Air 08/27/22 08:00 08/27/22 07:49 97 Room Air 08/27/22 07:49 08/27/22 10:25 08/27/22 07:48 96 Room Air 08/27/22 07:34 95 Room Air Recovery Score Activity: Moves 4 extremities Respiration: Deep Breath/Cough Circulation: +/-20% PreAnes Value Consciousness: Fully Awake Oxygen Saturation: > 92% On Room Air Post Anesthesia Score: 10 Discharge Sedation Level of Care: Fast Track Phase II Post Sedation Plan On clinical assessment, the patient appears to have tolerated the sedation with out complications. Patient is recovering as anticipated. Patient will continue to be monitored by nursing and may be discharged when sedation discharge criteria are met per below protocol. Upon Completions of procedure up to 15 minutes continue every 5 minute vital signs and the P.A.R. score; then discharge to a Phase I or Fast Track to Phase II per the following guidelines: * Discharge Patient to appropriate Phase II area if PAR is 8 or greater or return to pre- procedure baseline. The post - procedure orders will be as directed. * If PAR score is less than 8 or not return to pre-procedure baseline then patient will follow Phase I monitoring till PAR is reached for Phase II. The Phase I may be done in procedure room or may call to secure a Phase I area. * If naloxone or flumazenil are used for reversal, hold in Phase I for continued monitoring from when last reversal dose was given for a minimum of 60 minutes or longer pending the nurse and/or physician discretion of patient condition before discharge to Phase II. Please call the Sedation Physician to re-evaluate and complete post-note for discharge to Phase II area. Do NOT discharge from procedure sedation or Phase 1 until post- sedation evaluation note is complete by procedure /sedation MD Sedation Discharge Instructions to be given to the patient at discharge to home.
--- NOTE | 2022-08-27 13:29 | Cardiac Catheterization ---
[facility] Data: Security Strategist Cardiac Status Clinical evaluation leading to the procedure CAD Presenation: Non STEMI Anginal Classification: CCS IV Diagnostic Physicians Name: Oh Mackey MD Closure Device Recommendations: PCI without planned CABG Cardiac Cath Procedure Full Procedure Date August 27, 2022 Pre-Procedure Diagnosis Pre-Procedure Diagnosis: Non STEMI AUC Score AUC Score: 8 Post-Procedure Diagnosis Post-Procedure Diagnosis: Severe CAD, Successful PCI and Normal Intracardiac Pressures Procedure(s) Performed Procedure(s) Performed: Coronary Angiography, Left Heart Cath, Drug Eluting Stent and IVUS Freight Breaker Oh Mackey MD Drilling Machine Runner(s) Henrry Estimated Blood Loss Estimated Blood Loss: 10 Medication(s) Medication(s): Fentanyl, Heparin, Lidocaine 1%, Nicardipine, Nitroglycerin and Versed Medication(s): Ticagrelor Summary of Findings Indication: NSTEMI Access: 6 Fr right radial artery Catheters: [place], diagnostic JR4, EBU 3.5 guide Findings: LM -normal caliber, no significant disease LAD -medium caliber, mildly calcified, diffuse mid segment disease up to 95*% at takeoff of second septal. Latemid LAD without significant disease and FRANSICO II flow. Apical luminal irregularities as wraps around apex. First septal with 80% ostial stenosis. Small to medium D2 with diffuse mild to moderate disease up to 60%. Circumflex -large caliber vessel, 30% mid segment, medium left OM3 with 60% mid segment stenosis RCA -dominant, large caliber, 30 to 40% proximal to mid disease, late mid luminal regularities. PDA with 50% ostial stenosis. Large posterior AV branch without disease. LVEDP -5 -- PCI -- Antithrombotic therapy: Heparin, ticagrelor Procedure: Left main cannulated with EBU 3.5 guide Pre-procedure flow FRANSICO 2 Spike Driver 50 wire passed across lesion into distal vessel Mid LAD lesion predilated with 2.5 compliant balloon Whisper wire placed into second diagonal IVUS catheter placed into latemid LAD. Pullback revealed diffuse, calcified disease extending distal to D2 and across takeoff of first septal. Minimal ostial LAD/left main disease Dilated lesion stented with 3.0 x 38 mm [place] drug-eluting stent Stent post-dilated with 3.5 noncompliant balloon Post stent implantation FRANSICO II flow in D2 with severe ostial stenosis Second diagonal rewired with whisper wire through stent struts Ostium of second diagonal dilated through stent struts with 2.0 balloon Repeat IVUS revealed well-expanded, well apposed stent with no apparent edge complications IC vasodilators administered for spasm Post procedure FRANSICO 3 flow, stent well expanded with minimal residual stenosis and no apparent cardiac complications. Arterial Closure: TR band Summary: 1. Multivessel coronary artery disease -95+% mid LAD diseaseculprit vessel. Diffuse disease in second diagonal up to 60% OM3 60% mid stenosis 40% proximal RCA, 50% ostial RPDA 2. Normal intracardiac filling pressure 3. Successful PCI of diffuse mid LAD disease with single drug-eluting stent (3.0 x 38 mm Gregg; postdilated with 3.5 NC). -Angioplasty of jailed D2 ostium with 2.0 balloon through stent struts Recommendations: To PCU for continued monitoring Loaded with ticagrelor 180 mg in Security Strategist Continue dual-antiplatelet therapy for at least 1 year Continue statin, and ASCVD risk factor modification Consult cardiac Rehab Medical management of residual nonculprit CAD Hemodynamics Rest Ao:: 126/76/98 Final Ao: 120/74/89 LV: 128/5 Recommendations Recommendations: PCI without planned CABG Specimens Specimens: None Radiation Exposure (mGy) 3185 Contrast (mls) 140 Anesthesia Moderate 3355-4633 Procedural Complication(s) None Disposition PCU I attest to the content of the Intraoperative Record and any orders documented therein. Any exceptions are noted below. [facility] Card Cath Procedure Codes Cardiac Catheterization Procedure 1: Cardiovascular Cath Procedures: 73279 Coronaries and LHC (+/-LV) Therapeutic Services & Ancillary Procedure 1: Cardiovascular Tx and Anc Procedures: 03858 IV Ultrasound (Coronary or Graft) Moderate Sedation Procedure 1: Sedation/Anesthesia: 60591 Mod Sedation by the same physician;Init15 Min Child Age 5 & Up Procedure 2: Sedation/Anesthesia: 02722 Mod Sedation by the same physician; Ea [id number] Minutes Stenting Procedure 1: Cardiovascular Stent Procedures: 34332 Perc transcatheter placement of intracoronary stent(s), with ang PG Care Time/CCT Total # of Minutes Spent Total Time Spent with Patient: Total time spent is greater than 50% in coordination of care (as documented) at patient's floor/unit and/or counseling patient:
[2022-08-27] MEDS ORDERED: SODIUM CHLORIDE 0.9% 1000ML 1,000 ML IV SCH (13:30)
[2022-08-27] MEDS ORDERED: ONDANSETRON INJ 2 MG/ML 2 ML VIAL IV PRN (13:54)
[2022-08-27] MEDS ORDERED: MAGNESIUM HYDROXIDE SUSP 30 ML UDC PO PRN (13:54)
[2022-08-27] MEDS ORDERED: POLYETHYLENE (MIRALAX) 17 GM PACK PO PRN (13:54)
[2022-08-27] MEDS ORDERED: ACETAMINOPHEN 325 MG TAB PO PRN (13:54)
[2022-08-27] MEDS: ALUMINUM/MAGNESIUM SUSP 30 ML UDC PO PRN (15:12)
[2022-08-27 16:09] LABS: Partial Thromboplastin Ratio 1.3; Partial Thromboplastin Time 36.3 Seconds (21.0-31.0)
[2022-08-27] MEDS: METOPROLOL TARTRATE 25 MG TAB PO SCH (20:25)
[2022-08-28 06:37] LABS: Basophils # (auto) 0.08 K/uL (0-0.2); Basophils % (auto) 0.8 %; Eosinophils # (auto) 0.28 K/uL (0-0.50); Eosinophils % (auto) 2.7 %; Hemoglobin 15.1 g/dl (14.0-18.0); Immature Granulocytes # (auto) 0.03 K/uL (0.01-0.20); Immature Granulocytes % (auto) 0.3 %; Lymphocytes # (auto) 1.84 K/uL (1.2-3.4); Lymphocytes % (auto) 17.6 %; Mean Corpuscular Hemoglobin 30.2 pg (25.0-34.0); Mean Corpuscular Hgb Conc 34.3 g/dL (32.0-36.0); Mean Platelet Volume 9.4 fL (9.4-12.4); Monocytes % (auto) 8.6 %; Neutrophils # (auto) 7.31 K/uL (1.40-6.50); Platelet Count 189 K/uL (130-400); RDW Coefficient of Variation 13.3 % (11.5-14.5); RDW Standard Deviation 42.8 fL (36.4-46.3); White Blood Count 10.44 K/ul (4.8-10.8)
[2022-08-28 06:49] LABS: Albumin Level 4.1 gm/dl (3.4-5.0); Bilirubin,Total 1.5 mg/dl (0.2-1.0); Calcium 9.4 mg/dl (8.6-10.3); Magnesium 1.8 mg/dl (1.7-2.4)
[2022-08-28 06:55] LABS: Albumin Globulin Ratio 1.5 (0.9-2); BUN Creatinine Ratio 16.5 (10-20); Chol HDL Ratio 4.3 (0-5); Creatinine Clr Calc Pharmacy 79.4 ml/min; Est GFR (African American) 91.9 ml/min; Est GFR (Non-African American) 79.3 ml/min; Globulin 2.7 gm/dl (2.5-4.0); Total Protein 6.8 gm/dl (6.0-8.3)
[2022-08-28 07:52] LABS: Estimated Average Glucose 128 mg/dl; Hemoglobin A1C 6.1 % (4.5-5.6)
[2022-08-28] MEDS ORDERED: ATORVASTATIN 40 MG TAB PO SCH (09:00)
[2022-08-28] MEDS ORDERED: ASPIRIN 81 MG ECTAB PO SCH ×2 (09:00)
[2022-08-28] MEDS ORDERED: TICAGRELOR 90 MG TAB PO SCH (09:00)
[2022-08-28] MEDS ORDERED: ATORVASTATIN 20 MG TAB PO SCH (09:00)
--- NOTE | 2022-08-28 09:16 | Electrocardiogram Report ---
Test Reason : Blood Pressure : / mmHG Vent. Rate : 079 BPM Atrial Rate : 079 BPM P-R Int : 164 ms QRS Dur : 092 ms QT Int : 360 ms P-R-T Axes : 001 -32 061 degrees QTc Int : 412 ms Sinus rhythm with occasional Premature ventricular complexes Left axis deviation Incomplete right bundle branch block Nonspecific T wave abnormality Abnormal ECG When compared with ECG of 27-AUG-2022 13:31, (unconfirmed) Inverted T waves have replaced nonspecific T wave abnormality in Anterior leads Confirmed by Ronny Flanagan ([id number]) on 08/28/2022 9:16:19 AM Referred By: REFERRED SELF Confirmed By:Ronny Flanagan
--- NOTE | 2022-08-28 09:24 | Electrocardiogram Report ---
Test Reason : Blood Pressure : / mmHG Vent. Rate : 071 BPM Atrial Rate : 071 BPM P-R Int : 168 ms QRS Dur : 100 ms QT Int : 404 ms P-R-T Axes : 003 -31 050 degrees QTc Int : 439 ms Sinus rhythm with frequent Premature ventricular complexes Left axis deviation Nonspecific T wave abnormality Abnormal ECG When compared with ECG of 27-AUG-2022 10:02, Incomplete right bundle branch block is no longer Present Confirmed by Ronny Flanagan ([id number]) on 08/28/2022 9:24:13 AM Referred By: REFERRED SELF Confirmed By:Ronny Flanagan
[2022-08-28] MEDS: METOPROLOL TARTRATE 25 MG TAB PO SCH (10:29)
[2022-08-28] MEDS: ALUMINUM/MAGNESIUM SUSP 30 ML UDC PO PRN (10:30)
--- NOTE | 2022-08-28 13:47 | Cardiology Progress Note ---
Date of Service August 28, 2022 Assessment & Plan (1) NSTEMI (non-ST elevated myocardial infarction): Plan: echo pre cath , normal LVEF , focal mid anteroseptal wall motion abnormality that correlated with the LAD , septal wharf operator stenosis. Summary of catheterization report: 1. Multivessel coronary artery disease -95+% mid LAD diseaseculprit vessel. Diffuse disease in second diagonal up to 60% OM3 60% mid stenosis 40% proximal RCA, 50% ostial RPDA 2. Normal intracardiac filling pressure 3. Successful PCI of diffuse mid LAD disease with single drug-eluting stent (3.0 x 38 mm Gregg; postdilated with 3.5 NC). -Angioplasty of jailed D2 ostium with 2.0 balloon through stent struts Stable for discharge on aspirin 81 mg daily (lifelong0, Brilinta 90 mg BID (x 1 year), metoprolol tartrate 25 mg BID, losartan 25 mg daily, atorvastatin 40 mg daily (2) Hypercholesterolemia: Plan: Increase STONE BANKER atorvastatin from 20 mg to 40 mg daily. (3) HTN (hypertension): Plan: metoprolol 25 mg BID, losartan 25 mg daily. (4) PVC (premature ventricular contraction): Plan: metoprolol tartrate 25 mg BID. Disposition: stable for discharge on the following medications. Rebate card for Brilinta. Cardiac rehab. cardio follow up in 2-4 weeks . Admission and Anticipated Discharge Date Admission Date: August 27, 2022 Subjective Patient seen in cardiology follow up. His spouse, Grace, is at the bedside. He feels well. Denies chest pain or palpitations. Telemetry reveals SR in the range of 60-80 bpm , with occasional PVCs. Review of Systems Review of Systems: All systems reviewed & are unremarkable except as noted in HPI & below Physical Exam Constitutional: WD/WN, vitals as above Respiratory: normal respiratory effort, lungs clear to auscultation Cardiovascular: RRR, no murmur, no edema (right radial artery , clean, dry and intact. ) Gastrointestinal (Abdomen): normal bowel sounds, soft, nontender, no hepatosplenomegaly Neurologic: PERRL, EOMI, accommodation nl, no face palsy, no dysarthria Results & Data Vital Signs (Past 12 Hours) Vital Signs Temp Pulse Pulse Resp BP Pulse Ox O2 Del Method 08/28/22 12:00 36.6 C 85 16 133/78 99 Room Air 08/28/22 08:00 36.5 C 87 16 127/55 L 100 Room Air 08/28/22 06:42 81 08/28/22 04:31 36.6 C 84 18 132/74 96 Room Air Laboratory Results Cardiac Enzymes 08/28/22 Range/Units 05:29 AST 37 (13-39) U/L Coagulation 08/27/22 Range/Units 15:24 APTT 36.3 H (21.0-31.0) Seconds Lipids 08/28/22 Range/Units 05:29 Triglycerides 212 H (0-150) mg/dl Cholesterol 134 (0-200) mg/dl HDL Cholesterol 31 mg/dl Cholesterol/HDL Ratio 4.3 (0-5) LDL 61 mg/ dl CBC 08/28/22 Range/Units 05:29 WBC 10.44 (4.8-10.8) K/ul RBC 5.00 (4.70-6.10) M/uL Hgb 15.1 (14.0-18.0) g/dl Hct 44.0 (42.0-52.0) % Plt Count 189 (130-400) K/uL Neut # (Auto) 7.31 H (1.40-6.50) K/uL Lymph # (Auto) 1.84 (1.2-3.4) K/uL [place] # (Auto) 0.90 H (0.11-0.59) K/uL Eos # (Auto) 0.28 (0-0.50) K/uL Baso # (Auto) 0.08 (0-0.2) K/uL Comprehensive Metabolic Panel 08/28/22 Range/Units 05:29 Sodium 137 (136-145) mmol/L Potassium 4.0 (3.5-5.1) mmol/L Chloride 107 (98-107) mmol/L Carbon Dioxide 23 (21-32) mmol/L BUN 16 (6-23) mg/dl Creatinine 0.97 (0.6-1.4) mg/dl Glucose 112 H (70-99(Fasting)) mg/dl Calcium 9.4 (8.6-10.3) mg/dl AST 37 (13-39) U/L ALT 31 (7-52) U/L Alkaline Phosphatase 73 (34-104) U/L Total Protein 6.8 (6.0-8.3) gm/dl Albumin 4.1 (3.4-5.0) gm/dl Diagnostic Findings EKG today , SR with IRBBB, occasional PVCs. Mild non specific repolarization changes. Stable findings.
--- NOTE | 2022-08-28 14:21 | Discharge Summary ---
Discharge Summary Date of Service August 28, 2022 Notes For Next Care Provider Patient admitted to hospital with chest pain, elevated troponin and LAD territory wall motion abnormality on echocardiogram. Patient underwent cardiac catheterization which is multivessel coronary artery disease with 95% mid LAD lesion which was culprit vessel. He underwent successful PCI to diffuse mid LAD disease with single drug-eluting stent. He is discharged on cardiac regimen of aspirin 81 mg daily lifelong, Brilinta 90 mg twice daily x1 year, metoprolol tartrate 25 mg twice daily, losartan 20 mg daily and atorvastatin 40 mg daily. Medication Changes From Visit Atorvastatin is increased from 20 mg daily to 40 mg daily. Aspirin 81 mg daily lifelong. Brilinta 90 mg twice daily x1 year. Losartan 25 mg daily. Toprol tartrate 25 mg twice daily. Admission HPI Per Admitting Provider This is a 67-year-old male who has significant past medical history of hyperlipidemia, history of necrotizing pancreatitis 7 years ago and marijuana use who presents to ED secondary to chest pain x2 to 3 days. Patient's is at bedside. Patient notes substernal nonradiating chest pain that occurred while at rest over the last 2 to 3 days. When it came on he will try to, "walk it off," and symptoms will get worse. This morning he woke up and shortly after arising the chest pain started again and therefore presented to ED. He described the pain as a pressure. He has never experienced this pain before. He has been trying Tums over the weekend without significant relief. He denies any significant family history of cardiac disease. He denies any recent illness, fever, chills, sweats, lightheadedness, dizziness, diaphoresis, shortness of breath, EDGAR, orthopnea, nausea, vomiting, abdominal pain or change in bowel or urinary habits. He does not smoke or use any alcohol. He does smoke marijuana at bedtime to help him sleep. 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 Admission Exam Per Admitting Provider Constitutional: WD/WN, vitals as above, NAD, sitting up in bed, pleasant, conversing easily Head: Normocephalic, Atraumatic Eyes: PERRL, conjunctivae normal, anicteric sclerae ENMT: external ear and nose normal, oropharynx normal Neck: trachea midline, no thyromegaly normal visual inspection Respiratory: normal respiratory effort, lungs clear to auscultation, no wheeze, rales, rhonchi. Normal insp/exp effort, no accessory muscle use Cardiovascular: RRR, no murmur, no edema Vessels: no JVD or carotid bruit Chest: normal inspection of chest Abdomen: normal bowel sounds, soft, nontender, no hepatosplenomegaly Musculoskeletal: no cyanosis or clubbing, extremities motor strength 5/5 Skin: no rashes, warm and dry normal turgor Neurologic: PERRL, EOMI, accommodation nl, no face palsy, no dysarthria CN's II-XI intact bilaterally and moves all extremities Psychiatric: A+Ox3, euthymic affect Lymphatic: no cervical or axillary lymphadenopathy : deferred Principal Dx & Hospital Course #1 = Principal Diagnosis (1) NSTEMI (non-ST elevated myocardial infarction): (2) Hypercholesterolemia: Plan This is a 67-year-old male who has significant past medical history of hyperlipidemia, history of necrotizing pancreatitis 7 years ago and marijuana use who presents to ED secondary to chest pain x2 to 3 days. On admission patient was found to have an elevated troponin with EKG findings of nonspecific ST and T wave changes. Echocardiogram precardiac cath revealed a normal LVEF, focal mid anterior septal wall motion abnormality that correlated with LAD, septal infarct. Patient underwent cardiac catheterization which revealed multivessel coronary artery disease with 95% LAD disease of which is the culprit vessel and underwent successful PCI of diffuse mid LAD disease with single drug- eluting stent. He was also noted to have diffuse disease in second diagonal up to 60%, OM 360% mid stenosis and 40% proximal RCA and 50% ostial RPDA. Patient's prior to admission atorvastatin was increased to 40 mg daily and he was started on aspirin 81 mg daily, Toprol tartrate 25 mg twice daily, losartan 25 mg daily and Brilinta 90 mg twice daily. On day of discharge she is chest pain-free and overall feeling well. He is hemodynamically stable. Telemetry shows normal sinus rhythm with PACs and PVCs. He will follow-up with cardiology as an outpatient basis and complete cardiac rehab. Discharge Exam Constitutional: WD/WN, vitals as above, NAD, sitting up in bed, pleasant, conversing easily Head: Normocephalic, Atraumatic Eyes: PERRL, conjunctivae normal, anicteric sclerae ENMT: external ear and nose normal, oropharynx normal Neck: trachea midline, no thyromegaly normal visual inspection Respiratory: normal respiratory effort, lungs clear to auscultation, no wheeze, rales, rhonchi. Normal insp/exp effort, no accessory muscle use Cardiovascular: RRR with ectopy, right radial band site CDI, no murmur, no edema Vessels: no JVD or carotid bruit Chest: normal inspection of chest Abdomen: normal bowel sounds, soft, nontender, no hepatosplenomegaly Musculoskeletal: no cyanosis or clubbing, extremities motor strength 5/5 Skin: no rashes, warm and dry normal turgor Neurologic: PERRL, EOMI, accommodation nl, no face palsy, no dysarthria CN's II-XI intact bilaterally and moves all extremities Psychiatric: A+Ox3, euthymic affect Lymphatic: no cervical or axillary lymphadenopathy : deferred Updated Medication List Medication Instructions Recorded Confirmed Type aspirin 81 mg tablet 81 mg PO DAILY 08/27/22 08/27/22 History atorvastatin 40 mg tablet 40 mg PO QAM #30 tabs 08/28/22 Rx losartan 25 mg tablet 25 mg PO QAM #30 tabs 08/28/22 Rx metoprolol tartrate 25 mg tablet 25 mg PO BID #60 tabs 08/28/22 Rx nitroglycerin 0.4 mg sublingual 0.4 mg sublingual UD PRN chest 08/28/22 Rx tablet (Nitrostat) pain #3 tabs ticagrelor 90 mg tablet (Brilinta) 90 mg PO BID #60 tabs 08/28/22 Rx Hospital Stay Data Consultations 08/27/22 09:00 Consult Cardiology Stat 08/27/22 09:08 ED Decision to Admit Stat Procedures Performed Operation Date: 08/27/22 11:00 Actual Procedures p Cath, Left with Cors and Vent - Ivan Mackey MD s Drug Eluting Stent SGl Vessel - Ivan Mackey MD s POBA SGL Vessel - Ivan Mackey MD s Cineradiography w/Routine Exam - Ivan Mackey MD s IVUS Coronary Single Vessel - Ivan Mackey MD Diagnostic Imagining Performed 08/27/22 10:57 CL Cath Imgs for PACS use only Stat 08/27/22 13:48 CL IVUS Coronary Single Vessel Routine Pending Results Patient Have Any Pending Studies at Discharge: No Discharge Instructions Given to Patient (Per Discharging Provider) ACTIVITY RECOMMENDATIONS: Excess manipulation of the wrist should be avoided for the next 24-48 hours. * No lifting over 2 pounds (approximately a 1/2 gallon of milk) with the utilized arm for 24 hours. * No strenuous activity such as bowling or tennis for 3 days. * Keep the site of the procedure covered with a bandage for 24 hours. *You may shower the day after the procedure. Do not take a tub bath or submerge the puncture site in water for the next 3 days. *Do not operate any motorized equipment for 3 days. SPECIAL CARE INSTRUCTIONS: The site may be slightly bruised and sore following your procedure. Should any of the following occur, contact the Dr. who performed your procedure. 1. Redness/inflammation, swelling, chills, or fever, or colored drainage at procedure site within 3-7 days after your procedure. 2. Coldness, discoloration, ongoing numbness, severe pain, or swelling. Expect mild tingling of hand and tenderness at the puncture site for up to three days. If this persists beyond three days, or other symptoms develop, notify the Dr. who performed your procedure. BLEEDING: If the procedure site on your wrist begins to bleed, do not panic 1. Place 1 or 2 fingers firmly just slightly above the insertion site to stop the bleeding. You may be able to feel your pulse as you hold pressure. 2. Lift your finger after 5 minutes to see if the bleeding has stopped. 3. Once the bleeding has stopped, gently wipe the wrist area clean with a bandage. * If the bleeding from your wrist does not stop after 10 minutes, or if there is a large amount of bleeding or spurting, call 911 (do not drive yourself to the hospital). SKIN IRRITATION: * You may experience some redness and/or swelling in the area where radiation was administered. If any skin irritation occurs, please contact your family physician. FOLLOW UP VISIT: Keep any scheduled doctor appointments. You are scheduled to see cardiology in 2-4 weeks. 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 Total Time Total Time Spent Total Time Spent (In Minutes): 45 minutes Supervising Physician Co-Signing Physician Notes Patient was seen and examined at bedside as a follow-up for NSTEMI status post heart cath and stent x1 to mid LAD . Patient with no further chest pain. Cardiology evaluated, appreciate recommendation. Cardiac medication has been added. On examination, patient on room air, heart/lung/abdomen examination fairly WNL. Rest of the examination as above. Patient to follow-up with PCP and cardiology upon discharge. I have seen and examined the patient and have discussed the case with the provider above. I agree with the assessment and plan as stated.
[2022-08-29] MEDS ORDERED: LOSARTAN POTASSIUM 25 MG TAB PO SCH (09:00)
[2022-08-29] MEDS ORDERED: ATORVASTATIN 40 MG TAB PO SCH (09:00)
== END 2022-08-28 15:32 | disposition home or self-care (01) | DRG 247 ==
LOC: ED 07:33 → 4W 11:07 → CC 11:51 → 4W 11:52